=== PATIENT | female | born 1980 | race African-American/Black ===

== ENCOUNTER 2017-04-09 04:50 | Inpatient (IN) | payer MEDICAID ==
[2017-04-09] MEDS: LACTATED RINGERS 1,000 ML IV SCH ×3 (05:30→22:00)
[2017-04-09 05:44] LABS: Basophils % (Auto) 0.5 % (0.0-1.8); Eosinophils % (Auto) 4.5 % (0.0-4.3); Hematocrit 34.9 % (30.3-42.9); Hemoglobin 11.6 gm/dl (10.1-14.3); Mean Corpuscular HGB Conc 33 % (30-34); Mean Corpuscular Hemoglobin 31 pg (28-32); Mean Corpuscular Volume 93 fl (79-97); Platelet Count 290 K/mm3 (140-440); Red Blood Count 3.74 M/mm3 (3.65-5.03); White Blood Count 9.3 K/mm3 (4.5-11.0)
[2017-04-09] MEDS ORDERED: BOOSTRIX IM ONE (06:00)
--- NOTE | 2017-04-09 08:26 | History and Physical Report ---
History of Present Illness Date of examination: 04/09/17 Date of admission: 04/09/17 06:17 History of present illness: 36 yo LMP EDC 05/02/17 @ 36.5 weeks gestation, presented to triage with c/o SROM around 0330 this am. Denies VB or LOF, +FM. Late entry into care at 23 weeks gestation. course complicated by AMA. Sent to [facility] level 2 scan. Past History Past Medical History: no pertinent history Past Surgical History: no surgical history Family/Genetic History: none Social history: no significant social history, - Obstetrical History Expected Date of Delivery: 05/02/17 Actual Gestation: 36 Week(s) 5 Day(s) : 1 Medications and Allergies Allergies Allergy/AdvReac Type Severity Reaction Status Date / Time No Known Allergies Allergy Verified 04/09/17 04:52 Active Meds: Active Medications Butorphanol Tartrate (Stadol) 2 mg IV Q2H PRN PRN Reason: Pain , Severe (7-10) Ephedrine Sulfate (Ephedrine Sulfate) 10 mg IV Q2M PRN PRN Reason: Hypotension Fentanyl (Sublimaze) 100 mcg IV Q2H PRN PRN Reason: Labor Pain Lactated Ringer's (Lactated Ringers) 1,000 mls @ 125 mls/hr IV DIRECT VENESSA Last Admin: 04/09/17 06:30 Dose: 125 mls/hr Lactated Ringer's (Lactated Ringers) 1,000 mls @ 125 mls/hr IV DIRECT VENESSA Oxytocin/Sodium Chloride (Pitocin/Ns 20 Unit/1000ml Drip) 20 units in 1,000 mls @ 125 mls/hr IV DIRECT VENESSA Oxytocin/Sodium Chloride (Pitocin/Ns 30 Unit/500ml) 30 units in 500 mls @ 4 mls /hr IV TITR VENESSA PRN Reason: Protocol Oxytocin/Sodium Chloride (Pitocin/Ns 30 Unit/500ml) 30 units in 500 mls @ 1 mls /hr IV TITR VENESSA; 1 MILLIUNITS/MIN PRN Reason: Protocol Influenza Virus Vaccine Quadrival (Fluarix Quad 9877-0055(36 Mos+) 0.5 ml IM .ONCE ONE Stop: 04/09/17 12:01 Lidocaine (Xylocaine 2%) 20 ml INFILTRATI ONCE ONE Stop: 04/09/17 08:02 Mineral Oil (Mineral Oil) 30 ml PO QHS PRN PRN Reason: Constipation Terbutaline Sulfate (Brethine) 0.25 mg SUB-Q ONCE PRN PRN Reason: Hyperstimulation/Hypertonicity Terbutaline Sulfate (Brethine) 0.25 mg IVP ONCE PRN PRN Reason: Hyperstimulation/Hypertonicity Review of Systems All systems: negative - Vital Signs Vital signs: Vital Signs Temp Pulse Resp BP 98.4 F 102 H 20 113/73 04/09/17 05:10 04/09/17 05:10 04/09/17 05:10 04/09/17 05:10 Temp Pulse Resp BP Pulse Ox 98.4 F 104 H 20 112/69 04/09/17 05:10 04/09/17 08:25 04/09/17 05:10 04/09/17 08:25 - Physical Exam Abdomen: Positive: normal appearance, other (vertex) Genitourinary (Female): Positive: normal external genitalia, other (clear fluid) - Obstetrical FHR: category 1 Uterine Contraction Monitor Mode: External Cervical Dilatation: 2 Cervical Effacement Percentage: 80 station: -2 Uterine Contraction Pattern: Irregular Uterine Tone Measurement Phase: Resting Uterine Contraction Intensity: Mild Results Result Diagrams: 04/09/17 05:30 Abnormal lab results 04/09/17 Range/Units 05:30 RDW 13.0 L (13.2-15.2) % [place] % (Auto) 8.2 H (0.0-7.3) % Eos % (Auto) 4.5 H (0.0-4.3) % All other labs normal. Assessment and Plan A: IUP at 36.5 weeks gestation PPROM at term P: Active [place] with Pitocin Limit Vaginal Exams
[2017-04-09] MEDS ORDERED: ePHEDrine SULFATE IV PRN (08:30)
[2017-04-09] MEDS ORDERED: XYLOCAINE 2% INFILTRATI ONE (08:30)
[2017-04-09] MEDS ORDERED: SUBLIMAZE IV PRN (08:30)
[2017-04-09] MEDS ORDERED: STADOL IV PRN (08:30)
[2017-04-09] MEDS ORDERED: MINERAL OIL PO PRN (08:30)
[2017-04-09] MEDS ORDERED: PITOCin/NS 20 UNIT/1000ML DRIP 20 UNITS/1,000 ML BAG IV SCH ×2 (09:00→21:00)
[2017-04-09] MEDS ORDERED: BRETHINE SUB-Q PRN (09:00)
[2017-04-09] MEDS ORDERED: BRETHINE IVP PRN (09:00)
[2017-04-09] MEDS ORDERED: PITOCin/NS 30 UNIT/500ML 30 UNITS/500 ML BAG IV SCH (09:00)
[2017-04-09] MEDS ORDERED: LACTATED RINGERS 1,000 ML IV SCH ×2 (09:00→21:00)
[2017-04-09] MEDS: PITOCin/NS 30 UNIT/500ML 30 UNITS/500 ML BAG IV SCH ×2 (10:52→18:16)
[2017-04-09] MEDS ORDERED: Fluarix Quad 2017-2018(36 MOS+ IM ONE (12:00)
[2017-04-09] MEDS ORDERED: PEPCID IV ONE (20:03)
[2017-04-09] MEDS ORDERED: BICITRA PO ONE (20:03)
[2017-04-09] MEDS ORDERED: REGLAN IV ONE (20:03)
--- NOTE | 2017-04-09 20:10 | Event Note ---
Date: 04/09/17 Late entry. On-call MD called to bedside because pt is . Upon exam, provider suspects malpresentation. Bedside ultrasound confirms breech presentation. All medications discontinued. Proceed with urgent primary section and other indicated procedures.
[2017-04-09] MEDS ORDERED: DIPRIVAN 10 MG/ML IV ONE (20:11)
[2017-04-09] MEDS ORDERED: ANCEF/STERILE WATER 2 GM/20 ML IV ONE (20:20)
[2017-04-09] MEDS ORDERED: WATER FOR IRRIG STERILE IR ONE (20:25)
[2017-04-09] MEDS ORDERED: NACL 0.9% IR ONE (20:25)
[2017-04-09] MEDS ORDERED: SUBLIMAZE ONE (20:27)
[2017-04-09] MEDS ORDERED: QUELICIN ONE (20:27)
[2017-04-09] MEDS ORDERED: METHERGINE IM ONE ×2 (20:31→22:06)
[2017-04-09] MEDS ORDERED: CYTOTEC ONE (20:42)
[2017-04-09] MEDS ORDERED: ANCEF/STERILE WATER 2 GM/20 ML 2 GM/20 ML SYRINGE IV NR (21:00)
--- NOTE | 2017-04-09 21:23 | Operative Report ---
Operative Report Operative Report: Date of procedure: April 09, 2017 Preoperative diagnosis: 1) IUP at 36w5d 2) PROM 3) Malpresentation 4) AMA Postoperative diagnosis: Same Procedure: Primary low transverse section Surgeon: Marie Diaz M.D. Anesthesia: GETA Findings: 1) Viable male , Apgars 8 and 9, weight 2893g, (6 lb 6 oz) in yoan breech presentation 2) Normal-appearing uterus ovaries and tubes Estimated blood loss: 1000 mL IV fluids: 1800 mL Urine output: 100 mL, clear at the end of the procedure Drains: Grace to gravity Specimens: Placenta to pathology Complications: None. Counts correct x 3 Medications: Additional 20 units of pitocin, Methergine 0.2 mg IM and misoprostol 800 mcg per rectum Disposition: Stable to PACU Indication for procedure: The patient is a 36 year old female primigravida who presents with PROM this morning. She progressed to complete dilation when she was noted to be in breech presentation. The decision was made to proceed with urgent primary section. Operation in detail: After the risks, benefits, alternatives and complications were explained to the patient she gave informed consent for the procedure. She was subsequently taken to the operating room. heart tones were noted to be in the 140s prior to incision. She was subsequently placed in the dorsal supine position with leftward tilt and prepped and draped in a normal sterile fashion. A timeout was performed. General encotracheal anesthesia was then induced without difficulty. A Pfannenstiel skin incision was made with the knife and carried down to the layer of the fascia with the Bovie. The fascia was incised in the midline and the fascial incision was extended bilaterally with the Bovie. The rectus muscles were then in the midline. The peritoneum was then entered bluntly. The peritoneal incision was then stretched. The bladder blade was placed. The vesicouterine peritoneum was grasped with smooth pickups and incised with Metzenbaum scissors. Metzenbaum scissors were used to extend the incision bilaterally. The bladder flap was then created digitally and the bladder blade was replaced. A transverse incision was made in the lower uterine segment with a knife and extended bilaterally with the bandage scissors. The buttocks were delivered without difficulty followed by the remainder of the body. was bulb suctioned at delivery. The cord was clamped and cut and the was handed to NICU staff in attendance. The placenta was then delivered manually. The uterus was then cleared of all clots and debris. The uterus was noted to be atonic so the patient received an additional 20 units of pitocin as well as Methergine 0.2 mg IM were administered. Uterine tone was improved. The hysterotomy was then reapproximated with 0 Vicryl in a running locked fashion. A second layer of the same suture was used in imbricating fashion. Multple figure of eights of 0-Vicryl and 2-0 Vicryl were used to obtain hemostasis at the left apex of the hysterotomy. Hemostasis was noted. The hysterotomy was inspected and hemostasis was noted. The gutters were irrigated and cleared of all clots and debris. The hysterotomy was again inspected and noted to be hemostatic. Surgicel was placed over the hysterotomy. The peritoneum and rectus muscles were then reapproximated with 2-0 Vicryl in a running fashion. The fascia was reapproximated with 0 Vicryl in a running fashion. The skin was reapproximated with 4-0 Vicryl in a subcuticular fashion. The incision was then covered with steri strips and a pressure dressing. The procedure was then ended. 800 mcg of misoprostol was then placed in the patient's rectum. The patient tolerated the procedure well, was extubated and was taken to the PACU in stable condition. All instrument, lap, and needle counts were correct 3.
--- NOTE | 2017-04-09 21:30 | Procedure Note ---
OB Delivery Note - Delivery Date of Delivery: 04/09/17 Surgeon: GURINDER CHACKO Estimated blood loss: 1000cc - Section Preop diagnosis: breech Postop diagnosis: same section procedure: section, primary low transverse Disposition: PACU Complications: uterine atony Narrative: Please see operative note. - Infant A at 1 minute: 8 at 5 minutes: 9 Gender: Male (2893g (6lb 6oz) @ 2024 pm)
[2017-04-09] MEDS ORDERED: NARCAN 0.4 MG/1 ML IV PRN (21:33)
[2017-04-09] MEDS ORDERED: ZOFRAN IV PRN (21:43)
[2017-04-09] MEDS ORDERED: MORPHINE IV PRN (21:43)
--- NOTE | 2017-04-09 21:43 | Post Anesthesia Evaluation ---
- Post Anesthesia Evaluation Patient Participated: Yes Airway Patent: Yes Stable Respiratory Function: Yes Temp > 96.8F: Yes Pain Manageable: Yes Adequeate Hydration: Yes Anesthesia Complications: No
--- NOTE | 2017-04-09 21:43 | Anesthesia Day of Surgery ---
Anesthesia Day of Surgery - Day of Surgery Patient Examined: Yes Patient H&P Reviewed: Yes Patient is NPO: No (FSP)
--- NOTE | 2017-04-09 21:43 | Anesthesia Consultation ---
Anesthesia Consult and Med Hx Date of service: 04/09/17 - Airway Anesthetic Teeth Evaluation: Good ROM Head & Neck: Adequate Mental/Hyoid Distance: Adequate Mallampati Class: Class II Intubation Access Assessment: Probably Good - Pulmonary Exam CTA: Yes - Cardiac Exam Cardiac Exam: RRR - Pre-Operative Health Status ASA Pre-Surgery Classification: ASA2, Emergency Proposed Anesthetic Plan: General - Pre-Anesthesia Comment Pre-Anesthesia Comments: breech presentation, dilitation complete - Pulmonary Hx Asthma: No COPD: No Hx Pneumonia: No - Cardiovascular System Hx Hypertension: No - Central Nervous System Hx Seizures: No Hx Psychiatric Problems: No - Endocrine Hx Renal Disease: No Hx End Stage Renal Disease: No Hx Hypothyroidism: No Hx Hyperthyroidism: No - Hematic Hx Anemia: No Hx Sickle Cell Disease: No - Other Systems Hx Alcohol Use: No
[2017-04-09] MEDS ORDERED: MORPHINE PCA 30MG/30ML IV SCH (22:00)
[2017-04-09] MEDS ORDERED: CYTOTEC PR ONE (22:06)
[2017-04-10] MEDS ORDERED: ANCEF/NS 1 GM/50 ML 1 GM/50 ML BAG IV SCH (00:10)
[2017-04-10] MEDS ORDERED: TUCKS PAD TP PRN (00:10)
[2017-04-10] MEDS ORDERED: MILK OF MAGNESIA PO PRN (00:10)
[2017-04-10] MEDS ORDERED: LANSINOH TP PRN (00:10)
[2017-04-10] MEDS ORDERED: SODIUM CHLORIDE FLUSH SYRINGE 10 ML IV PRN (00:10)
[2017-04-10] MEDS ORDERED: NARCAN 0.4 MG/1 ML IV PRN ×2 (00:10)
[2017-04-10] MEDS ORDERED: MORPHINE PCA 30MG/30ML IV SCH (00:10)
[2017-04-10] MEDS ORDERED: MYLICON PO PRN (00:10)
[2017-04-10] MEDS ORDERED: BENADRYL IV PRN (00:10)
[2017-04-10] MEDS ORDERED: PITOCin/NS 20 UNIT/1000ML DRIP 20 UNITS/1,000 ML BAG IV SCH (00:10)
[2017-04-10] MEDS ORDERED: REGLAN IV PRN (00:10)
[2017-04-10] MEDS ORDERED: D5LR 1,000 ML IV SCH (00:10)
[2017-04-10] MEDS ORDERED: ZOFRAN IV PRN ×2 (00:10)
[2017-04-10] MEDS: TORADOL IV PRN ×2 (00:37→06:10)
[2017-04-10] MEDS: ceFAZolin 1 GM in NACL 0.9% 20 ML IV SCH ×2 (04:35→12:12)
[2017-04-10 07:04] LABS: Bacteria,Urine 1+ /HPF (Negative); Bilirubin,Urine NEG (Negative); Blood,Urine MOD (Negative); Ketones,Urine NEG (Negative); Leukocyte Esterase,Urine LG (Negative); Mucus,Urine FEW /HPF; Nitrite,Urine NEG (Negative); Protein,Urine <15 mg/dL mg/dL (Negative); Urobilinogen,Urine < 2.0 mg/dL (<2.0)
[2017-04-10] MEDS ORDERED: FEOSOL PO SCH (10:00)
[2017-04-10 10:28] LABS: Hematocrit 24.1 % (30.3-42.9); Hemoglobin 7.9 gm/dl (10.1-14.3)
--- NOTE | 2017-04-10 11:27 | Progress Note ---
Assessment and Plan A: POD#1 s/p primary at term, Hemorrhage, Anemia P: Routine care. Monitor for symptoms. Subjective - Subjective Date of service: 04/10/17 Principal diagnosis: POD#1 s/p primary at term Interval history: Febrile immediately postop. Patient reports: appetite normal, voiding normally, pain well controlled, ambulating normally : doing well Objective - Vital Signs Latest vital signs: Vital Signs Temp Pulse Resp BP BP Pulse Ox 04/10/17 10:30 20 04/10/17 09:34 98.6 F 96 H 18 89/53 95 04/10/17 08:30 20 04/10/17 04:30 98.7 F 119 H 20 105/67 04/10/17 00:35 16 04/10/17 00:15 100.7 F H 102 H 18 126/80 04/09/17 23:00 109 H 22 127/74 94 04/09/17 22:55 106 H 17 135/81 93 04/09/17 22:50 101.5 F H 111 H 22 125/77 94 04/09/17 22:45 112 H 15 117/81 93 04/09/17 22:40 109 H 22 121/79 95 04/09/17 22:35 103 H 25 H 144/82 97 04/09/17 22:30 103 H 21 119/83 99 04/09/17 22:25 105 H 21 124/82 99 04/09/17 22:20 101 H 21 134/82 100 04/09/17 22:15 105 H 21 138/74 100 04/09/17 22:10 98 H 13 140/83 100 04/09/17 22:05 108 H 16 137/72 99 04/09/17 22:00 125 H 23 88/61 100 04/09/17 21:55 129 H 20 88/61 99 04/09/17 21:50 121 H 26 H 123/100 100 04/09/17 21:46 128 H 25 H 135/66 99 04/09/17 21:40 124 H 26 H 135/66 87 04/09/17 21:38 118 H 23 100 04/09/17 21:37 97.8 F 04/09/17 19:56 99 H 123/76 04/09/17 19:25 101 H 130/82 04/09/17 18:56 101 H 117/62 04/09/17 18:25 100 H 124/81 04/09/17 17:55 86 102/58 04/09/17 17:25 85 119/70 04/09/17 16:56 82 119/66 04/09/17 16:25 90 110/70 04/09/17 15:56 81 116/66 04/09/17 15:28 90 116/70 04/09/17 14:25 88 101/59 04/09/17 13:55 93 H 111/71 04/09/17 13:25 93 H 112/81 04/09/17 12:56 90 115/73 04/09/17 12:25 93 H 119/82 04/09/17 11:55 84 111/71 Intake and Output 04/09/17 04/10/17 04/10/17 22:59 06:59 14:59 Intake Total 2005.2 100 125 Output Total 300 400 Balance 1705.2 -300 125 Intake: IV 2005.2 125 PITOCin/NS 30 UNIT/500ML 55.2 30 units In 500 ml @ 4 mls/hr IV TITR VENESSA Rx#: [id number] Right Hand 125 Intake, Free Water 100 Output: Urine 300 400 Indwelling Catheter 400 Other: Total, Output Amount 400 Estimated Blood Loss 750 - Exam Breasts: Present: deferred Cardiovascular: Present: Regular rate Lungs: Present: Clear to auscultation Abdomen: Present: soft, distention (moderate ), abnormal bowel sounds ( hypoactive ) Uterus: Present: fundal height at umbilicus Extremities: Present: normal Incision: Present: dressed - Labs Labs: Abnormal lab results 04/10/17 04/10/17 Range/Units 06:50 10:17 Hgb 7.9 L D (10.1-14.3) gm/dl Hct 24.1 L D (30.3-42.9) % Urine WBC (Auto) 64.0 H (0.0-6.0) /HPF
[2017-04-10] MEDS: PERCOCET 5/325 PO PRN ×3 (12:08→23:22)
[2017-04-10] MEDS: MOTRIN PO PRN ×2 (12:09→23:22)
[2017-04-10] MEDS ORDERED: M-M-R II VACCINE SUB-Q ONE (21:32)
[2017-04-11] MEDS ORDERED: BOOSTRIX IM ONE (06:00)
[2017-04-11] MEDS: PERCOCET 5/325 PO PRN ×3 (08:53→21:57)
[2017-04-11] MEDS: MOTRIN PO PRN ×2 (08:54→17:16)
--- NOTE | 2017-04-11 09:10 | Progress Note ---
Assessment and Plan O;VSS AF A: Stable POD #1 Anemia P: Routine PP orders Subjective - Subjective Date of service: 04/11/17 Interval history: 36 yo LMP EDC 05/02/17 @ 36.5 weeks gestation, presented to triage with c/o SROM around 0330 this am. Denies VB or LOF, +FM. Late entry into care at 23 weeks gestation. course complicated by AMA. [facility] Patient reports: appetite normal, voiding normally, pain well controlled, no flatus, no ambulating normally : doing well Objective - Vital Signs Latest vital signs: Vital Signs Temp Pulse Resp BP Pulse Ox 04/11/17 08:54 20 04/11/17 08:53 20 04/11/17 06:00 98 F 04/11/17 04:30 98.3 F 04/11/17 00:30 98.9 F 95 H 18 93/53 04/10/17 22:00 98 F 04/10/17 20:05 97.8 F 04/10/17 18:10 98.3 F 98 H 20 88/53 04/10/17 16:13 20 04/10/17 12:19 98.0 F 18 89/61 98 04/10/17 12:09 20 04/10/17 12:08 20 04/10/17 10:30 20 04/10/17 09:34 98.6 F 96 H 18 89/53 95 Intake and Output 04/10/17 04/11/17 04/11/17 22:59 06:59 14:59 Intake Total 240 360 Output Total 600 Balance -360 360 Intake: Oral 240 Intake, Free Water 360 Output: Urine 600 Void 600 Other: Total, Intake Amount 240 Total, Output Amount 600 # Voids Void 1 1 - Exam Breasts: Present: deferred Abdomen: Present: normal appearance, soft Vulva: both: normal Uterus: Present: normal, firm, fundal height at umbilicus. Absent: bogginess, tenderness Extremities: Present: normal Incision: Present: normal, dry, intact, dressed - Labs Labs: Abnormal lab results 04/10/17 Range/Units 10:17 Hgb 7.9 L D (10.1-14.3) gm/dl Hct 24.1 L D (30.3-42.9) %
[2017-04-11] MEDS: FEOSOL PO SCH (21:58)
[2017-04-12] MEDS: MOTRIN PO PRN ×2 (05:08→15:39)
[2017-04-12] MEDS: PERCOCET 5/325 PO PRN ×2 (05:09→15:41)
--- NOTE | 2017-04-12 07:07 | Progress Note ---
Assessment and Plan O: VSS AF PP H/H: 7.9/24.1 A: stable POD #3 Anemia Tape Blisters P: D/C home Routine PP orders Subjective - Subjective Date of service: 04/12/17 Principal diagnosis: POD#1 s/p primary at term Interval history: 36 yo LMP EDC 05/02/17 @ 36.5 weeks gestation, presented to triage with c/o SROM around 0330 this am. Denies VB or LOF, +FM. Late entry into care at 23 weeks gestation. course complicated by AMA. Sent to [facility] level 2 scan. Patient reports: appetite normal, voiding normally, pain well controlled, flatus , ambulating normally, other (tape blisters right hip) : doing well, nursing well Objective - Vital Signs Latest vital signs: Vital Signs Temp Pulse Resp BP 04/12/17 00:00 98.0 F 73 20 116/62 04/11/17 17:40 97.2 F L 80 20 102/69 04/11/17 17:17 20 04/11/17 17:16 20 04/11/17 08:54 20 04/11/17 08:53 20 04/11/17 08:35 98.2 F 73 20 102/66 Intake and Output 04/11/17 04/12/17 04/12/17 22:59 06:59 14:59 Intake Total 360 Balance 360 Intake: Oral 360 Other: Total, Intake Amount 120 # Voids Void 1 1 - Exam Breasts: Present: deferred Lungs: Present: Normal air movement Abdomen: Present: normal appearance, soft, tenderness, normal bowel sounds. Absent: distention Vulva: both: normal Uterus: Present: normal, firm, fundal height below umbilicus (4 below U, ML). Absent: bogginess Extremities: Present: normal Incision: Present: normal, dry, intact, other (steri strips)
--- NOTE | 2017-04-12 07:09 | Discharge Summary ---
Providers - Providers Date of Admission: 04/09/17 06:17 Date of discharge: 04/12/17 Attending physician: LAVERNE WEST MD 04/10/17 00:10 Consult to Physician Assistant Primary Care [CONS] Routine Reason For Exam: Primary care physician: LAVERNE WEST MD Hospitalization Reason for admission: active labor, IUP at term, other (breech) Delivery: Procedure: primary low transverse Episiotomy: none Laceration: none Incision: normal, dry, intact, other (tape blisters) Other procedures: none complications: none Discharge diagnosis: IUP at term delivered baby: male Condition at discharge: Good Disposition: DC-01 TO HOME OR SELFCARE Plan - Discharge Medications Prescriptions: Docusate Sodium [Colace] 100 mg PO BID PRN #60 capsule PRN Reason: Constipation Ferrous Sulfate [Feosol] 325 mg PO TID #90 tablet Ibuprofen [Motrin] 600 mg PO Q6H PRN #30 tablet PRN Reason: Pain oxyCODONE /ACETAMINOPHEN [Percocet 5/325] 1 tab PO Q6HR PRN #40 tablet PRN Reason: Pain - Provider Discharge Summary Activity: routine, no sex for 6 weeks, no heavy lifting 4 weeks, no strenuous exercise Diet: routine Instructions: routine Additional instructions: [] Smoking cessation referral if applicable(refer to patient education folder for contact #) [] Refer to [facility]'s [facility] Booklet Call your doctor immediately for: * Fever > 100.5 * Heavy vaginal bleeding ( >1 pad per hour) * Severe persistent headache * Shortness of breath * Reddened, hot, painful area to leg or breast * Drainage or odor from incision. * Keep incision clean and dry at all times and follow doctor's instructions regarding bathing/showering - Follow up plan Follow up: LAVERNE WEST MD [Primary Care Provider] - 14 Days (Call office to schedule circumcision and incision check )
[2017-04-12] MEDS ORDERED: TRIPLE ANTIBIOTIC TP SCH (08:00)
[2017-04-12] MEDS: FEOSOL PO SCH (11:33)
[2017-04-12 18:29] VITALS: BP 110/77
== END 2017-04-12 16:45 | disposition home or self-care (01) | DRG 765 ==
LOC: TRG 04:50 → LD 06:17 → TRG 06:17 → APU 21:07 → OB 04-10 00:25
PROVIDERS: ADMIT Obstetrics & Gynecology; ATTEND Obstetrics & Gynecology
PROC: 10D00Z1 Extraction of Products of Conception, Low, Open Approach (ICD-10-PCS; principal; 2017-04-09)
PROC: 3E0234Z Introduction of Serum, Toxoid and Vaccine into Muscle, Percutaneous Approach (ICD-10-PCS; 2017-04-10)
DX: O42.913 Preterm premature rupture of membranes, unspecified as to length of time between rupture and onset of labor, third trimester (principal); O72.1 Other immediate postpartum hemorrhage; O32.1XX0 Maternal care for breech presentation, not applicable or unspecified; O99.02 Anemia complicating childbirth; D64.9 Anemia, unspecified; Z3A.36 36 weeks gestation of pregnancy; Z37.0 Single live birth; Z23 Encounter for immunization
CPT/HCPCS: 36415; 81001; 85014; 85018; 85025; 86592; 86850; 86900; 86901; 87086; 88307; 90471; 90686; 90715; 99211; A6250; G0463; J0330; J0595; J0690; J1885; J2210; J2270; J2590; J2704; J2765; J3010; J7120; J7121